=== PATIENT | female | born 1960 | race Hispanic/Latino ===

== ENCOUNTER 2018-05-13 13:33 | Emergency (ER) | payer OTHER ==
[2018-05-13] MEDS ORDERED: IBUPROFEN PO ONE (14:21)
[2018-05-13] MEDS ORDERED: NORCO 5/325 PO ONE (14:21)
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
[2018-05-13 14:31] VITALS: BP 164/91
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
[2018-05-13] MEDS ORDERED: FIORICET PO ONE (18:01)
== END 2018-05-13 18:33 | disposition home or self-care (01) ==
LOC: ED 13:33
DX: M54.5 Low back pain (principal); M54.2 Cervicalgia; F41.9 Anxiety disorder, unspecified; J45.909 Unspecified asthma, uncomplicated; F17.200 Nicotine dependence, unspecified, uncomplicated; R51 Headache; V49.49XA Driver injured in collision with other motor vehicles in traffic accident, initial encounter; Y93.89 Activity, other specified; Y92.89 Other specified places as the place of occurrence of the external cause; Y99.8 Other external cause status
CPT/HCPCS: 70450; 71045; 72125; 72131